=== PATIENT | female | born 1965 | race Caucasian/White ===

== ENCOUNTER → 2023-03-21 | Outpatient (CLI) | payer OTHER, SELFPAY ==
--- NOTE | 2023-03-21 10:05 | US_ITS ---
INDICATION: Right upper quadrant pain. EXAMINATION: Ultrasound US Abdomen Limited (quadrant) TECHNIQUE: Estrada scale and color doppler imaging was performed of the right upper quadrant. COMPARISON: No previous examinations are available for comparison. FINDINGS: LIVER: There is normal echotexture measuring about 16 cm in length. 1.2 cm cyst in the posterior right lobe of the liver. There is no free fluid. GALLBLADDER AND BILIARY TREE: No shadowing gallstone, pericholecystic fluid or gallbladder wall thickening is demonstrated. The gallbladder wall measures 2 mm. The proximal common bile duct measures 4.4, which is within normal limits for the patient''s age. Sonographic Hodge''s sign: Negative. The pancreas as visualized on this examination is grossly unremarkable. The right kidney measures 11.2 cm in length. The right renal cortex measures 1.1 cm. No evidence of right hydronephrosis. PANCREAS: 1. Small liver cyst. 2. No evidence of cholelithiasis. US/Abdomen Limited IMPRESSION: No acute sonographic abnormality is demonstrated in the right upper quadrant. Electronically Signed: Major Richard MD at 11:43 EDT ,
== END | disposition home or self-care (01) ==
PROVIDERS: PCP Nurse Practitioner Family; Referring Provider Nurse Practitioner Family; Visit Provider Nurse Practitioner Family
DX: R10.11 Right upper quadrant pain (principal)
CPT/HCPCS: 76705